=== PATIENT | female | born 1985 | race Two or more races ===

== ENCOUNTER 2019-11-08 23:25 | Emergency (ER) | payer SELFPAY ==
[2019-11-08] MEDS ORDERED: Naproxen 500 MG Tab PO ONE (23:52)
--- NOTE | 2019-11-09 00:05 | EDM.PDOC ---
ED HPI GENERAL MEDICAL PROBLEM - General Chief Complaint: Upper Extremity Injury/Pain Stated Complaint: RIGHT ELBOW INJURY Time Seen by Provider: 11/08/19 23:35 - History of Present Illness INITIAL COMMENTS - FREE TEXT/NARRATIVE: 34-year-old female presents complaining of a stumbling fall onto her right side landing squarely on her right elbow. The patient denies any significant head trauma. No loss of consciousness. The patient is not on blood thinners. Patient denies any neck or back pain. No leg pain. She does endorse 3-6/10 right elbow pain (worse with movement) and which is worse in the lateral and posterior components. She denies any liz weakness or numbness. She took no special medications for the illness before arrival. Patient denies any chest pain, shortness of breath, confusion, headache, vision changes. 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: Musculoskeletal History: Reports: None Neurological History: Reports: None Psychiatric History: Reports: None Endocrine/Metabolic History: Reports: None Insulin Pump Model and Construction Code Administrator: None Hematologic History: Reports: None Immunologic History: Reports: None Oncologic (Cancer) History: Reports: None Dermatologic History: Reports: None - Infectious Disease History Infectious Disease History: Reports: None - Past Surgical History Head Surgeries/Procedures: Reports: None Social & Family History - Family History Family Medical History: Noncontributory - Tobacco Use Smoking Status *Q: Never Smoker - Caffeine Use Caffeine Use: Reports: None - Recreational Drug Use Recreational Drug Use: No Review of Systems - Review of Systems Review Of Systems: Comprehensive ROS is negative, except as noted in HPI. ED EXAM, GENERAL - Physical Exam Exam: See Below Free Text/Narrative:: General: No acute distress. Comfortable. Heent: Examination revealed no pallor, no icterus, no lymphadenopathy. The patient has normal posterior pharynx, moist mucous membranes. Neck: Supple. No JVD. No rigidity. Heart: Reg rhythm. Lungs: Metric movement. Not tachypneic.. Abdomen: Nontender, non-distended, soft, no CVA tenderness. Neuro: Pt is moving all four extremities. EOMI. PERRL. Normal speech. Skin: Exposed areas appeared normally perfused, warm, normal color with no meaningful rashes or lesions. Extremities: Trace abrasion to right olecranon with some moderate associated TTP here. Mild tenderness to the medial epicondyle of the right elbow. Normal power of extension and flexion of the wrist. Normal power at the fingers in extension and flexion. Excellent radial and ulnar pulses distally. No gross deformity. No tenderness of the distal humerus. Peripheral examination revealed no pedal edema. Peripheral pulses were 2+. Course - Vital Signs Text/Narrative:: Isolated trauma to right elbow. Negative imaging. Patient can range her elbow quite well. She is tender over the elbow proper and the medial condyle. However she is neurovascular intact otherwise. Anti-inflammatories for pain control. Maintain range of motion. Follow-up 7 to 10 days with orthopedics if not improved. Last Recorded V/S: Last Vital Signs Temp 97 F 11/08/19 23:35 Pulse 69 11/08/19 23:35 Resp 18 11/08/19 23:35 BP 112/67 11/08/19 23:35 Pulse Ox 98 11/08/19 23:35 - Orders/Labs/Meds Meds: Medications Discontinued Medications Generic Name Dose Route Start Last Admin Trade Name Freq PRN Reason Stop Dose Admin Naproxen 500 mg 11/08/19 23:52 11/09/19 00:01 Naprosyn PO 11/08/19 23:53 500 mg ONETIME ONE Administration Departure - Departure Time of Disposition: 00:45 Disposition: DC/Tfer to [facility] Condition: Good Clinical Impression: Elbow contusion - Discharge Information Referrals: PCP,None [Primary Care Provider] - Forms: ED Department Discharge Additional Instructions: Take anti-inflammatory medication of your choice regularly for best results to help control pain. This would include something like ibuprofen which is the same thing as Advil, 2 tablets or 400 mg every 6-8 hours. Or, you could use naproxen sodium which is the same thing as Aleve every 12 hours as directed for pain. Follow-up 7 to 10 days with orthopedics if you are not much improved. [facility] [address], [address] [place] [address] The following information is given to patients seen in the emergency department who are being discharged to home. This information is to outline your options for follow-up care. We provide all patients seen in our emergency department with a follow-up referral. The need for follow-up, as well as the timing and circumstances, are variable depending upon the specifics of your emergency department visit. If you don't have a primary care physician on staff, we will provide you with a referral. We always advise you to contact your personal physician following an emergency department visit to inform them of the circumstance of the visit and for follow-up with them and/or the need for any referrals to a consulting specialist. The emergency department will also refer you to a specialist when appropriate. This referral assures that you have the opportunity for follow-up care with a specialist. All of these measure are taken in an effort to provide you with optimal care, which includes your follow-up. Under all circumstances we always encourage you to contact your private physician who remains a resource for coordinating your care. When calling for follow-up care, please make the office aware that this follow-up is from your recent emergency room visit. If for any reason you are refused follow-up, please contact the [facility] Emergency Department at and asked to speak to the emergency department charge nurse. Sepsis Event Note - Evaluation Sepsis Screening Result: No Definite Risk - Focused Exam Vital Signs: Vital Signs Temp Pulse Resp BP Pulse Ox 11/08/19 23:35 97 F 69 18 112/67 98 Date Exam was Performed: 11/09/19 Time Exam was Performed: 00:48
--- NOTE | 2019-11-09 00:46 | CR ---
INDICATION: S/P fall. Rt elbow pain. RIGHT ELBOW No fracture, dislocation, or destructive lesion of bone is seen. No arthritic changes or soft tissue abnormalities are identified. IMPRESSION: Negative right elbow radiographs. ROBERTO CARLOS BAGLEY MD [facility] Dictated by: Ronak Bagley MD @ 11/09/2019 00:45:06 (Electronically Signed)
== END 2019-11-09 01:00 | disposition home or self-care (01) ==
LOC: MW.ED 23:25
DX: S50.01XA Contusion of right elbow, initial encounter (principal); W01.0XXA Fall on same level from slipping, tripping and stumbling without subsequent striking against object, initial encounter
CPT/HCPCS: 73080; 99283; A9270

== ENCOUNTER 2020-10-30 15:34 | Emergency (ER) | payer SELFPAY ==
[2020-10-30] MEDS ORDERED: Ketorolac 15 MG/ML SDV IM ONE (17:39)
[2020-10-30] MEDS ORDERED: Ketorolac 15 MG/ML SDV IVPUSH STA (17:40)
[2020-10-30] MEDS ORDERED: Dextrose 5%-Lactated Ringers 1,000 ML IV SCH (17:45)
[2020-10-30 18:42] LABS: BLOOD UREA NITROGEN,BUN 12 mg/dL (7.0-18.0); CARBON DIOXIDE,CO2 25.1 mmol/L (21.0-32.0); CHLORIDE,CL 106 mmol/L (98-107); GLUCOSE RANDOM 107 mg/dL (74-106); POTASSIUM,K 3.9 mmol/L (3.5-5.1); SODIUM,NA 141 mmol/L (136-145)
[2020-10-30] MEDS ORDERED: Sulfamethoxazole/Trimethoprim 800-160 MG Tab PO ONE (19:11)
[2020-10-30] MEDS ORDERED: Lactated Ringers 1,000 ML IV SCH (19:15)
--- NOTE | 2020-10-30 19:23 | EDM.PDOC ---
<Vladislav Baum - Last Filed: 10/30/20 19:22> ED HPI GENERAL MEDICAL PROBLEM - General Chief Complaint: General Stated Complaint: NAUSEA,BODY ACHES,FREQ COUGH Time Seen by Provider: 10/30/20 15:38 - History of Present Illness INITIAL COMMENTS - FREE TEXT/NARRATIVE: CHIEF COMPLAINT(S): Abdominal pain HISTORY OF PRESENT ILLNESS: This is a 35-year-old woman without any significant past medical history who comes to the emergency department with a chief complaint of abdominal pain. The patient states that for approximately 4 days now she has been experiencing chills and body aches. She states that over the weekend she started to experiencing a nonproductive cough, sneezing, and runny nose. She states that she feels cold all the time. She states that she then developed upper abdominal pain which moved to the lower abdominal pain associated with bilateral back pain. She states that she did have vomiting this morning but denies any diarrhea. She denies any hematemesis, bilious emesis. S he denies any dysuria or hematuria but states that there is some foul-smelling urine. She denies any Covid exposures and has not yet received a Covid vaccine. She describes as her abdominal pain as sharp and achy rated 5 out of 10. She denies any aggravating or relieving factors. REVIEW OF SYSTEMS: Constitutional: Positive for chills and body ache Eyes: Denies eye pain Ears, Nose, Mouth, & Throat: Positive for runny nose and congestion Cardiovascular: Denies chest pain Respiratory: Positive for nonproductive cough denies shortness of breath Gastrointestinal: Positive for abdominal pain, nausea, vomiting. Denies diarrhea, medic easier, hematemesis, bilious emesis Genitourinary: Positive for foul-smelling urine denies hematuria, dysuria, hematuria Skin:Denies a rash MSK: Denies joint pain Neurological: Denies blurred vision Psychiatric: Denies depression PAST MEDICAL HISTORY: As per history of present illness and as reviewed below otherwise noncontributory. SURGICAL HISTORY: As per history of present illness and as reviewed below otherwise noncontributory. SOCIAL HISTORY: As per history of present illness and as reviewed below otherwise noncontributory. FAMILY HISTORY: As per history of present illness and as reviewed below otherwise noncontributory. EXAMINATION OF ORGAN SYSTEMS/BODY AREAS: Constitutional: Blood pressure was 160/70, heart rate was 80, respiratory rate 18 with an oxygen saturation of 100% on room air. Temperature 35.0 temporally General: Young woman who does not appear to be in acute distress Psychiatric: Appropriate mood and affect. Eyes: No scleral icterus or conjunctival erythema ENMT: Dry mucous membranes. No pharyngeal erythema Cardiovascular: Regular, rate, and rhythm. No gallops, murmurs, or rubs. Bilateral upper extremity pulses symmetric and intact. No peripheral edema. No JVD. Respiratory: Lungs clear to auscultation bilaterally. No wheezes, rales, or rhonchi. Gastrointestinal: Soft, non-tender, non-distended. Normoactive bowel sounds Genitourinary: No suprapubic tenderness mild bilateral CVA tenderness. Musculoskeletal: Normal range of motion. Skin: No lesions or abrasions. Neurological: Alert, GCS 15 MEDICAL DECISION MAKING AND COURSE IN THE ED WITH INTERPRETATION/REVIEW OF DIAGNOSTIC STUDIES: This is a 35-year-old man without any significant past medical history who comes to the emergency department with abdominal pain and viral-like symptoms who has normal vitals. At this time differential includes cystitis, pyelonephritis, Covid, influenza. Will obtain CBC, CMP, and urinalysis. Will obtain a Covid swab. We will provide the patient with 1 L of lactated Ringer's bolus, Toradol IV. We will reevaluate. Laboratory: CBC is unremarkable. CMP reveals hyperglycemia at 107, hypocalcemia at 7.8 otherwise unremarkable. Urinalysis was a clean catch and was negative for leukocyte esterase, positive for nitrites, and negative for blood. Interpretation: Positive After labs I did reevaluate the patient. The patient stated that she still felt dehydrated. I did send a urine culture at this time I discussed with her that we would be treating her for pyelonephritis. Covid and influenza was pending at this time. We will provide the patient with additional LR bolus and and wait for Covid results. Patient was signed out to oncoming night team physician pending Covid results. The patient can be discharged home with strict return precautions DISPOSITION: Patient was signed out to oncoming night team physician pending Covid swab and finish of second fluid bolus CONDITION: Fair PROCEDURES: None FINAL IMPRESSION(S)/DIAGNOSES: 1. Acute pyelonephritis 2. Acute viral syndrome Vladislav Baum M.D. 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: Musculoskeletal History: Reports: None Neurological History: Reports: None Psychiatric History: Reports: None Endocrine/Metabolic History: Reports: None Insulin Pump Model and [employer] Functional Analyst: None Hematologic History: Reports: None Immunologic History: Reports: None Oncologic (Cancer) History: Reports: None Dermatologic History: Reports: None - Infectious Disease History Infectious Disease History: Reports: Chicken Pox - Past Surgical History Head Surgeries/Procedures: Reports: None HEENT Surgical History: Reports: None Cardiovascular Surgical History: Reports: None Respiratory Surgical History: Reports: None GI Surgical History: Reports: None Female Surgical History: Reports: None Endocrine Surgical History: Reports: None Neurological Surgical History: Reports: None Musculoskeletal Surgical History: Reports: None Oncologic Surgical History: Reports: None Dermatological Surgical History: Reports: None Social & Family History - Family History Family Medical History: No Pertinent Family History - Tobacco Use Tobacco Use Status *Q: Never Tobacco User Second Hand Smoke Exposure: No - Caffeine Use Caffeine Use: Reports: None - Recreational Drug Use Recreational Drug Use: No ED ROS GENERAL - Review of Systems Review Of Systems: See Below ED EXAM, GENERAL - Physical Exam Exam: See Below Departure - Departure Disposition: Home, Self-Care 01 Condition: Fair Clinical Impression: COVID-19, Pyelonephritis - Discharge Information Prescriptions: Sulfamethoxazole/Trimethoprim [Bactrim Ds Tablet] 1 each PO BID #28 tablet Instructions: Pyelonephritis, Adult, [id number], 10 Things You Can Do to Manage Your COVID-19 Symptoms at Home - CDC, Prevent the Spread of COVID-19 if You Are Sick - [facility] Referrals: PCP,None [Primary Care Provider] - Forms: ED Department Discharge Additional Instructions: You evaluate today on an emergent basis. At this time there was evidence of infection in your urine and given the back pain we are going to treat for a kidney infection. We did send a urine culture and prescribed you with antibiotics. Please complete the full course of antibiotics. The antibiotics were sent to your pharmacy. Your COVID-19 test was also positive. This likely explains your diffuse body aches and other symptoms. If you have worsening shortness of breath or severe vomiting and not unable to keep food down please return to the ER. Otherwise please follow-up with one of the primary care clinics listed below. If you have any worsening of your symptoms such as fever, inability to eat or drink or worsening pain I would like you to return to the emergency department. Otherwise please follow-up with your primary care physician. [facility] - [facility] [address] [place], [place] [id number] [facility] [address] [place] [id number] The patient is informed of any results of their evaluation and diagnostic workup and all questions are answered. They are given discharge instructions and return precautions. The patient is stable for discharge. The patient states they understand and agree with the plan and that they will return if their symptoms get worse or if they have any new concerns. The following information is given to patients seen in the emergency department who are being discharged to home. This information is to outline your options for follow-up care. We provide all patients seen in our emergency department with a follow-up referral. The need for follow-up, as well as the timing and circumstances, are variable depending upon the specifics of your emergency department visit. If you don't have a primary care physician on staff, we will provide you with a referral. We always advise you to contact your personal physician following an emergency department visit to inform them of the circumstance of the visit and for follow-up with them and/or the need for any referrals to a consulting specialist. The emergency department will also refer you to a specialist when appropriate. This referral assures that you have the opportunity for follow-up care with a specialist. All of these measure are taken in an effort to provide you with optimal care, which includes your follow-up. Under all circumstances we always encourage you to contact your private physician who remains a resource for coordinating your care. When calling for follow-up care, please make the office aware that this follow-up is from your recent emergency room visit. If for any reason you are refused follow-up, please contact the [facility] Emergency Department at and asked to speak to the emergency department charge nurse. Sepsis Event Note (ED) - Evaluation Sepsis Screening Result: No Definite Risk <Eugenio Espino - Last Filed: 10/30/20 20:35> Course - Vital Signs Last Recorded V/S: Last Vital Signs Temp 95.0 F L 10/30/20 15:47 Pulse 67 10/30/20 20:20 Resp 16 10/30/20 20:20 BP 112/68 10/30/20 20:20 Pulse Ox 98 10/30/20 20:20 - Orders/Labs/Meds Orders: Active Orders 24 hr Category Date Time Status CULTURE URINE [RM] Stat Lab 10/30/20 18:45 Received Dextrose 5%-Lactated Ringers 1,000 ml Med 10/30/20 17:45 Active IV ASDIRECTED Lactated Ringers [Ringers, Lactated] 1,000 ml Med 10/30/20 19:15 Active IV ASDIRECTED Medication Orders Dextrose/Lactated Ringer's (Dextrose 5%-Lactated Ringers) 1,000 mls @ 999 mls/hr IV ASDIRECTED [facility] Last Admin: 10/30/20 18:03 Dose: 999 mls/hr Documented by: [id number] Lactated Ringer's (Ringers, Lactated) 1,000 mls @ 999 mls/hr IV ASDIRECTED [facility] Last Admin: 10/30/20 19:19 Dose: 999 mls/hr Documented by: ALAN Labs: Laboratory Tests 10/30/20 10/30/20 10/30/20 Range/Units 18:05 18:05 18:45 WBC 6.79 (4.0-11.0) K/uL RBC 4.60 (4.30-5.90) M/uL Hgb 13.1 (12.0-16.0) g/dL Hct 41.1 (36.0-46.0) % MCV 89.3 (80.0-98.0) fL MCH 28.5 (27.0-32.0) pg MCHC 31.9 (31.0-37.0) g/dL RDW Std Deviation 44.0 (28.0-62.0) fl RDW Coeff of Jonathan 13 (11.0-15.0) % Plt Count 220 (150-400) K/uL MPV 11.30 (7.40-12.00) fL Neut % (Auto) 83.4 H (48.0-80.0) % Lymph % (Auto) 9.7 L (16.0-40.0) % Bonner % (Auto) 5.6 (0.0-15.0) % Eos % (Auto) 1.2 (0.0-7.0) % Baso % (Auto) 0.1 (0.0-1.5) % Neut # (Auto) 5.7 (1.4-5.7) K/uL Lymph # (Auto) 0.7 (0.6-2.4) K/uL Bonner # (Auto) 0.4 (0.0-0.8) K/uL Eos # (Auto) 0.1 (0.0-0.7) K/uL Baso # (Auto) 0.0 (0.0-0.1) K/uL Nucleated RBC % 0.0 /100WBC Nucleated RBCs # 0 K/uL Sodium 141 (136-145) mmol/L Potassium 3.9 (3.5-5.1) mmol/L Chloride 106 (98-107) mmol/L Carbon Dioxide 25.1 (21.0-32.0) mmol/L BUN 12 (7.0-18.0) mg/dL Creatinine 1.0 (0.6-1.0) mg/dL Est Cr Clr Drug Dosing 63.29 mL/min Estimated GFR (MDRD) > 60.0 ml/min Glucose 107 H (74-106) mg/dL Calcium 7.8 L (8.5-10.1) mg/dL Total Bilirubin 0.1 L (0.2-1.0) mg/dL AST 16 (15-37) IU/L ALT 19 (14-63) IU/L Alkaline Phosphatase 76 (46-116) U/L Total Protein 7.3 (6.4-8.2) g/dL Albumin 3.6 (3.4-5.0) g/dL Globulin 3.7 (2.6-4.0) g/dL Albumin/Globulin Ratio 1.0 (0.9-1.6) Urine Color YELLOW Urine Appearance CLEAR Urine pH 7.0 (5.0-8.0) Ur Specific Lavina 1.020 (1.001-1.035) Urine Protein NEGATIVE (NEGATIVE) mg/dL Urine Glucose (UA) 500 H (NEGATIVE) mg/dL Urine Ketones NEGATIVE (NEGATIVE) mg/dL Urine Occult Blood TRACE-INTACT H (NEGATIVE) Urine Nitrite POSITIVE H (NEGATIVE) Urine Bilirubin NEGATIVE (NEGATIVE) Urine Urobilinogen 0.2 (<2.0) EU/dL Ur Leukocyte Esterase NEGATIVE (NEGATIVE) Urine RBC 0-3 (0-2/HPF) Urine WBC 0-1 (0-5/HPF) Ur Epithelial Cells RARE (NONE-FEW) Urine Bacteria 1+ H (NEGATIVE) SARS-CoV-2 RNA (MARCO ANTONIO) (NEGATIVE) 10/30/20 Range/Units 19:08 WBC (4.0-11.0) K/uL RBC (4.30-5.90) M/uL Hgb (12.0-16.0) g/dL Hct (36.0-46.0) % MCV (80.0-98.0) fL MCH (27.0-32.0) pg MCHC (31.0-37.0) g/dL RDW Std Deviation (28.0-62.0) fl RDW Coeff of Jonathan (11.0-15.0) % Plt Count (150-400) K/uL MPV (7.40-12.00) fL Neut % (Auto) (48.0-80.0) % Lymph % (Auto) (16.0-40.0) % Bonner % (Auto) (0.0-15.0) % Eos % (Auto) (0.0-7.0) % Baso % (Auto) (0.0-1.5) % Neut # (Auto) (1.4-5.7) K/uL Lymph # (Auto) (0.6-2.4) K/uL Bonner # (Auto) (0.0-0.8) K/uL Eos # (Auto) (0.0-0.7) K/uL Baso # (Auto) (0.0-0.1) K/uL Nucleated RBC % /100WBC Nucleated RBCs # K/uL Sodium (136-145) mmol/L Potassium (3.5-5.1) mmol/L Chloride (98-107) mmol/L Carbon Dioxide (21.0-32.0) mmol/L BUN (7.0-18.0) mg/dL Creatinine (0.6-1.0) mg/dL Est Cr Clr Drug Dosing mL/min Estimated GFR (MDRD) ml/min Glucose (74-106) mg/dL Calcium (8.5-10.1) mg/dL Total Bilirubin (0.2-1.0) mg/dL AST (15-37) IU/L ALT (14-63) IU/L Alkaline Phosphatase (46-116) U/L Total Protein (6.4-8.2) g/dL Albumin (3.4-5.0) g/dL Globulin (2.6-4.0) g/dL Albumin/Globulin Ratio (0.9-1.6) Urine Color Urine Appearance Urine pH (5.0-8.0) Ur Specific Lavina (1.001-1.035) Urine Protein (NEGATIVE) mg/dL Urine Glucose (UA) (NEGATIVE) mg/dL Urine Ketones (NEGATIVE) mg/dL Urine Occult Blood (NEGATIVE) Urine Nitrite (NEGATIVE) Urine Bilirubin (NEGATIVE) Urine Urobilinogen (<2.0) EU/dL Ur Leukocyte Esterase (NEGATIVE) Urine RBC (0-2/HPF) Urine WBC (0-5/HPF) Ur Epithelial Cells (NONE-FEW) Urine Bacteria (NEGATIVE) SARS-CoV-2 RNA (MARCO ANTONIO) POSITIVE H (NEGATIVE) Meds: Medications Generic Name Dose Route Start Last Admin Trade Name Freq PRN Reason Stop Dose Admin Dextrose/Lactated Ringer's 1,000 mls @ 999 mls/hr 10/30/20 17:45 10/30/20 18:03 Dextrose 5%-Lactated Ringers IV 999 mls/hr ASDIRECTED SHRADDHA Administration Lactated Ringer's 1,000 mls @ 999 mls/hr 10/30/20 19:15 10/30/20 19:19 Ringers, Lactated IV 999 mls/hr ASDIRECTED SHRADDHA Administration Discontinued Medications Generic Name Dose Route Start Last Admin Trade Name Kia PRN Reason Stop Dose Admin Ketorolac Tromethamine 15 mg 10/30/20 17:40 10/30/20 18:03 Ketorolac 15 Mg/Ml Sdv IVPUSH 10/30/20 17:41 15 mg STAT STA Administration Trimethoprim/Sulfamethoxazole 1 tab 10/30/20 19:11 10/30/20 19:20 Sulfamethoxazole/Trimethoprim 800-160 Mg Tab PO 10/30/20 19:12 1 tab ONETIME ONE Administration Departure - Departure Time of Disposition: 20:33 Condition: Good - Discharge Information *PRESCRIPTION DRUG MONITORING PROGRAM REVIEWED*: Not Applicable *COPY OF PRESCRIPTION DRUG MONITORING REPORT IN PATIENT CLAUDIA: Not Applicable Sepsis Event Note (ED) - Focused Exam Vital Signs: Vital Signs Temp Pulse Resp BP Pulse Ox 10/30/20 20:20 67 16 112/68 98 10/30/20 15:47 95.0 F L 80 18 160/70 H 100 - Assessment/Plan Assessment:: Patient received in signout from Dr. Baum at 7 PM. Patient's Covid test is indeed positive. I believe this is the cause of her presentation. Her work of breathing is normal her vital signs are good. Patient is young and otherwise well she does not qualify for any directed Covid treatment steroids admission etc. Return precautions discussed and understood patient discharged with instructions to follow-up with her primary care clinic.
== END 2020-10-30 20:55 | disposition home or self-care (01) ==
LOC: MW.ED 15:34
DX: U07.1 COVID-19 (principal); N10 Acute pyelonephritis
CPT/HCPCS: 36415; 80053; 81001; 85025; 87086; 87088; 87186; 87635; 96374; 99284; A9270; J1885; J7120; J7121; 99283; U0002

== ENCOUNTER 2020-11-08 11:04 | Emergency (ER) | payer MEDICAID ==
[2020-11-08] MEDS ORDERED: Sodium Chloride 0.9% 10 ML Syringe FLUSH PRN (11:30)
[2020-11-08] MEDS ORDERED: Sodium Chloride 0.9% 1,000 ML IV ONE (11:30)
[2020-11-08] MEDS ORDERED: Sodium Chloride 0.9% 2.5 ML Syringe FLUSH PRN (11:30)
[2020-11-08] MEDS ORDERED: Dexamethasone 10 MG/ML SDV IVPUSH ONE (11:31)
--- NOTE | 2020-11-08 11:46 | PCM.EKG ---
#1 Interpretation EKG Date: 11/08/20 Time: 11:38 Rhythm: NSR Rate (Beats/Min): 81 [place]: Normal P-Wave: Present QRS: RBBB ST-T: Normal QT: Normal Comparison: NA - No Prior EKG EKG Interpretation Comments: SinuS Rhythm
[2020-11-08 12:30] LABS: BLOOD UREA NITROGEN,BUN 5 mg/dL (7.0-18.0); CARBON DIOXIDE,CO2 22.9 mmol/L (21.0-32.0); CHLORIDE,CL 106 mmol/L (98-107); GLUCOSE RANDOM 99 mg/dL (74-106); POTASSIUM,K 4.2 mmol/L (3.5-5.1); SODIUM,NA 142 mmol/L (136-145)
--- NOTE | 2020-11-08 12:49 | CT ---
INDICATION: COVID, PE, pneumonia. COMPARISON: None. TECHNIQUE: CT of the chest with 100 cc of Isovue 370 IV contrast. Coronal and sagittal reconstructions. 3D post processing was performed. FINDINGS: Normal heart size. Normal caliber thoracic aorta and central pulmonary arteries. Negative for acute pulmonary embolism. No pericardial effusion. Mildly prominent subcarinal and bilateral hilar lymph nodes are likely reactive. There are fairly extensive patchy ground-glass opacities throughout the lungs bilaterally which have a basilar and peripheral predominance. These are likely infectious or inflammatory. No pleural effusion or pneumothorax. No central endobronchial lesion. The thyroid gland is normal in appearance. The visualized upper abdomen is unremarkable. The bones are unremarkable. IMPRESSION: 1. Negative for acute pulmonary embolism. 2. Fairly extensive patchy ground-glass opacities throughout the lungs bilaterally which are likely infectious or inflammatory. Findings could be seen in the setting of COVID pneumonia. Please note that all CT scans at this facility use dose modulation, iterative reconstruction, and/or weight-based dosing when appropriate to reduce radiation dose to as low as reasonably achievable. Dictated by Fallon Veloz MD @ 11/08/2020 12:49:[address] Fallon Veloz @ Nov 08 2020 12:49PM
[2020-11-08] MEDS ORDERED: Calcium Carbonate 500 MG Tab.Chew PO ONE (13:02)
--- NOTE | 2020-11-08 13:23 | EDM.PDOC ---
ED HPI GENERAL MEDICAL PROBLEM - General Chief Complaint: Respiratory Problem Stated Complaint: PNEUMONIA Time Seen by Provider: 11/08/20 11:05 Source of Information: Reports: Patient History Limitations: Reports: No Limitations - History of Present Illness INITIAL COMMENTS - FREE TEXT/NARRATIVE: HISTORY AND PHYSICAL: History of present illness: Patient is a 35-year-old female who resents emergency room today with concern of worsening shortness of breath with known COVID-19 diagnosis. Patient was seen in the ED on 10/30 and at that time was diagnosed with COVID-19. Patient states that since then, she thought that she was improving but now over the past 2 to 3 days, she has had worsening shortness of breath. Patient states that she saw her primary care provider in the clinic and was given amoxicillin and an inhaler and was told that she had a urinary tract infection and "pneumonia ". Patient states that she had a chest x-ray yesterday and lab work done yesterday in the clinic and received a call today and was told that she had pneumonia and a urinary tract infection. Patient states she took 1 dose of antibiotics this morning. Patient states that when the clinic called her this morning, she told him that she was feeling short of breath so they instructed her to come to the emergency room. Patient denies any associated chest pain. Patient states that she continues to have intermittent fevers with the Covid diagnosis and body aches and chills. Patient states that she has also still been coughing and sneezing since she was diagnosed with Covid. Patient denies fever, chills, chest pain, or cough. Denies headache, neck stiff ness, change in vision, syncope, or near syncope. Denies nausea, vomiting, abdominal pain, diarrhea, constipation, or dysuria. Has not noted any blood in urine or stool. Patient has been eating and drinking appropriately. Review of systems: As per history of present illness and below otherwise all systems reviewed and negative. Past medical history: As per history of present illness and as reviewed below otherwise noncontributory. Surgical history: As per history of present illness and as reviewed below otherwise n oncontributory. Social history: See social history for further information Family history: As per history of present illness and as reviewed below otherwise noncontributory. Physical exam: General: Patient is alert, oriented, and in no acute distress. Patient sitting comfortably on exam table. Vitals stable and reviewed by me. HEENT: Atraumatic, normocephalic, pupils equal and reactive bilaterally, negative for conjunctival pallor or scleral icterus, mucous membranes moist, TMs normal bilaterally, throat clear, neck supple, nontender, trachea midline. No drooling or trismus noted. No meningeal signs. No hot potato voice noted. Lungs: Patient speaking clearly without breathlessness, no wheezing or stridor, no accessory muscle use or respiratory distress. Auscultation deferred due to current COV-ID 19 outbreak. Heart: Auscultation deferred due to current COV-ID 19 outbreak. Abdomen: Soft, nondistended, nontender. Negative for masses or hepatosplenomegaly. Negative for costovertebral tenderness. Pelvis: Stable nontender. Genitourinary: Deferred. Rectal: Deferred. Skin: Intact, warm, dry. No lesions or rashes noted. Extremities: Atraumatic, negative for cords or calf pain. Neurovascular unremarkable. Neuro: Awake, alert, oriented. Cranial nerves II through XII unremarkable. Cerebellum unremarkable. Motor and sensory unremarkable throughout. Exam nonfocal. Notes: Patient is a 35-year-old female who presents emergency room today secondary to worsening shortness of breath with known COVID-19 infection that was diagnosed 10 days ago. Upon arrival to the ED, patient is well-appearing on exam and vitally stable. She is speaking clearly without breathlessness, no accessory muscle use or respiratory distress without wheezing or stridor and oxygen on room air is 98%. Patient does express that she thought she was improving, however now her shortness of breath over the past several days is worsening and was started on antibiotics by her primary care provider for concern of a bacterial pneumonia and urinary tract infection. Will perform cardiac evaluation due to worsening dyspnea as well as performing and CT scan with concern of possible pulmonary embolism. Patient recent hcg was negative. See Dr. Baum's dictation for specific EKG interpretation. Otherwise, normal sinus rhythm without STEMI or ischemia. CBC mild derangements are unremarkable. CMP shows a corrected calcium of 8.3 which is mildly low, and elevation of AST at 243, elevated ALT at 311, elevated alk phos at 188 which is new from prior and likely related to COVID-19 infection. Albumin at 2.9 is slightly low. Troponin is negative. And CT is negative for acute pulmonary embolism. Fairly extensive patchy groundglass opacities throughout the lungs bilaterally which are likely inf ectious or inflammatory which is seen in the setting of COVID-19 pneumonia Upon reevaluation of patient, she remains vitally stable and comfortable throughout stay in ED. Patient's oxygen on room air remains consistently above 96% and ambulatory saturation of 97% on my exam. Strict return precautions were thoroughly discussed with patient. Signs and symptoms that were prompt return to the ED thoroughly discussed with patient. Discussed importance for follow-up with a primary care provider and for repeat lab work for her elevated liver functions today. Voices understanding and is agreeable to plan of care. Denies any further questions or concerns at this time. Diagnostics: EKG, CBC, CMP, Ang CT, Trop Therapeutics: NS, Decadron Prescription: None Impression: COVID-19 infection Transaminitis Plan: 1. Your vital signs and oxygen saturation are well enough that you were able to monitor your symptoms at home. Continue to monitor for trouble breathing, new confusion or inability to arouse, bluish lips or face or any of the other symptoms we discussed -if this occurs please return to the emergency room.Continue to monitor your health at home for worsening symptoms so that you can be taken care of and treated quickly if needed. You can purchase a pulse oximiter and monitor your oxygen at home. If your oxygen is consistently <90%, return to the ED as discussed. 2. Please self quarantine until you are fever free (<100.4 degrees fahrenheit) for 24 hours without the use of fever-reducing medications AND symptoms are improving. You should restrict activities outside of your home, except for getting medical care. Do not go to work, school, or public areas. Avoid using public transportation, ride-sharing, or taxis. . 3. You may alternate Tylenol and ibuprofen as needed for pain and fever management. 4.The [place] COVID 19 Hotline phone number , They are open Thursday - Thursday 7am - 7pm. Follow up with your primary care provider for re-evaluation and re-testing after quarantine and discuss when you should be seen and for repeat labwork / follow up of your liver function as discussed.. 5. For more specific guidelines regarding isolation/quarantine please visit this website. https://www.health.[place].gov/sites/www/files/documents/Files/DANIEL/coronavirus/Factsh eet_for_People_With_COVID-19.pdf Definitive disposition and diagnosis as appropriate pending reevaluation and review of above. 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: Musculoskeletal History: Reports: None Neurological History: Reports: None Psychiatric History: Reports: None Endocrine/Metabolic History: Reports: None Insulin Pump Model and Ophthalmic Surgical Assistant: None Hematologic History: Reports: None Immunologic History: Reports: None Oncologic (Cancer) History: Reports: None Dermatologic History: Reports: None - Infectious Disease History Infectious Disease History: Reports: Chicken Pox, Novel Coronavirus - Past Surgical History Head Surgeries/Procedures: Reports: None HEENT Surgical History: Reports: None Cardiovascular Surgical History: Reports: None Respiratory Surgical History: Reports: None GI Surgical History: Reports: None Female Surgical History: Reports: None Endocrine Surgical History: Reports: None Neurological Surgical History: Reports: None Musculoskeletal Surgical History: Reports: None Oncologic Surgical History: Reports: None Dermatological Surgical History: Reports: None Social & Family History - Family History Family Medical History: No Pertinent Family History - Tobacco Use Tobacco Use Status *Q: Never Tobacco User - Caffeine Use Caffeine Use: Reports: None - Recreational Drug Use Recreational Drug Use: No ED ROS GENERAL - Review of Systems Review Of Systems: Comprehensive ROS is negative, except as noted in HPI. ED EXAM, GENERAL - Physical Exam Exam: See Below (see dictation) Course - Vital Signs Last Recorded V/S: Last Vital Signs Temp 96.5 F L 11/08/20 11:10 Pulse 85 11/08/20 13:38 Resp 15 11/08/20 11:10 BP 107/72 11/08/20 13:38 Pulse Ox 96 11/08/20 13:38 - Orders/Labs/Meds Orders: Active Orders 24 hr Category Date Time Status Saline Lock Insert [OM.PC] Stat [facility] 11/08/20 11:30 Ordered Labs: Laboratory Tests 11/08/20 11/08/20 Range/Units 11:45 11:45 WBC 6.26 (4.0-11.0) K/uL RBC 4.23 L (4.30-5.90) M/uL Hgb 12.0 (12.0-16.0) g/dL Hct 37.3 (36.0-46.0) % MCV 88.2 (80.0-98.0) fL MCH 28.4 (27.0-32.0) pg MCHC 32.2 (31.0-37.0) g/dL RDW Std Deviation 44.2 (28.0-62.0) fl RDW Coeff of Jonathan 14 (11.0-15.0) % Plt Count 181 (150-400) K/uL MPV 10.90 (7.40-12.00) fL Neut % (Auto) 77.7 (48.0-80.0) % Lymph % (Auto) 15.2 L (16.0-40.0) % [place] % (Auto) 6.2 (0.0-15.0) % Eos % (Auto) 0.6 (0.0-7.0) % Baso % (Auto) 0.3 (0.0-1.5) % Neut # (Auto) 4.9 (1.4-5.7) K/uL Lymph # (Auto) 1.0 (0.6-2.4) K/uL [place] # (Auto) 0.4 (0.0-0.8) K/uL Eos # (Auto) 0.0 (0.0-0.7) K/uL Baso # (Auto) 0.0 (0.0-0.1) K/uL Nucleated RBC % 0.0 /100WBC Nucleated RBCs # 0 K/uL Sodium 142 (136-145) mmol/L Potassium 4.2 (3.5-5.1) mmol/L Chloride 106 (98-107) mmol/L Carbon Dioxide 22.9 (21.0-32.0) mmol/L BUN 5 L (7.0-18.0) mg/dL Creatinine 0.8 (0.6-1.0) mg/dL Est Cr Clr Drug Dosing 79.11 mL/min Estimated GFR (MDRD) > 60.0 ml/min Glucose 99 (74-106) mg/dL Calcium 7.9 L (8.5-10.1) mg/dL Total Bilirubin 0.4 (0.2-1.0) mg/dL AST 243 H (15-37) IU/L ALT 311 H (14-63) IU/L Alkaline Phosphatase 188 H (46-116) U/L Troponin I < 0.050 (0.000-0.056) ng/mL Total Protein 7.5 (6.4-8.2) g/dL Albumin 2.9 L (3.4-5.0) g/dL Globulin 4.6 H (2.6-4.0) g/dL Albumin/Globulin Ratio 0.6 L (0.9-1.6) Meds: Medications Discontinued Medications Generic Name Dose Route Start Last Admin Trade Name Freq PRN Reason Stop Dose Admin Calcium Carbonate/Glycine 1,000 mg 11/08/20 13:02 11/08/20 13:36 Calcium Carbonate 500 Mg Tab.Chew PO 11/08/20 13:03 1,000 mg ONETIME ONE Administration Dexamethasone 6 mg 11/08/20 11:31 11/08/20 11:39 Dexamethasone 10 Mg/Ml Sdv IVPUSH 11/08/20 11:32 6 mg ONETIME ONE Administration Sodium Chloride 1,000 mls @ 999 mls/hr 11/08/20 11:30 11/08/20 11:39 Normal Saline IV 11/08/20 12:30 999 mls/hr BOLUS ONE Administration Sodium Chloride 2.5 ml 11/08/20 11:30 11/08/20 11:39 Sodium Chloride 0.9% 2.5 Ml Syringe FLUSH 2.5 ml ASDIRECTED PRN Administration Keep Vein Open Sodium Chloride 10 ml 11/08/20 11:30 11/08/20 11:39 Sodium Chloride 0.9% 10 Ml Syringe FLUSH 10 ml ASDIRECTED PRN Administration Keep Vein Open Departure - Departure Time of Disposition: 13:19 Disposition: Home, Self-Care 01 Clinical Impression: COVID-19, Transaminitis - Discharge Information Instructions: COVID-19 Referrals: Saritha Fernando MD [Primary Care Provider] - Forms: ED Department Discharge Additional Instructions: The following information is given to patients seen in the emergency department who are being discharged to home. This information is to outline your options for follow-up care. We provide all patients seen in our emergency department with a follow-up referral. The need for follow-up, as well as the timing and circumstances, are variable depending upon the specifics of your emergency department visit. If you don't have a primary care physician on staff, we will provide you with a referral. We always advise you to contact your personal physician following an emergency department visit to inform them of the circumstance of the visit and for follow-up with them and/or the need for any referrals to a consulting specialist. The emergency department will also refer you to a specialist when appropriate. This referral assures that you have the opportunity for follow-up care with a specialist. All of these measure are taken in an effort to provide you with optimal care, which includes your follow-up. Under all circumstances we always encourage you to contact your private physician who remains a resource for coordinating your care. When calling for follow-up care, please make the office aware that this follow-up is from your recent emergency room visit. If for any reason you are refused follow-up, please contact the [facility] Emergency Department at and asked to speak to the emergency department charge nurse. [facility] [address] [place] [id number] [place] [address] 1. Your vital signs and oxygen saturation are well enough that you were able to monitor your symptoms at home. Continue to monitor for trouble breathing, new confusion or inability to arouse, bluish lips or face or any of the other symptoms we discussed -if this occurs please return to the emergency room.Continue to monitor your health at home for worsening symptoms so that you can be taken care of and treated quickly if needed. You can purchase a pulse oximiter and monitor your oxygen at home. If your oxygen is consistently <90%, return to the ED as discussed. 2. Please self quarantine until you are fever free (<100.4 degrees fahrenheit) for 24 hours without the use of fever-reducing medications AND symptoms are improving. You should restrict activities outside of your home, except for getting medical care. Do not go to work, school, or public areas. Avoid using public transportation, ride-sharing, or taxis. . 3. You may alternate Tylenol and ibuprofen as needed for pain and fever management. 4.The [place] COVID 19 Hotline phone number , They are open Thursday - Thursday 7am - 7pm. Follow up with your primary care provider for re-evaluation and re-testing after quarantine and discuss when you should be seen and for repeat labwork / follow up of your liver function as discussed.. 5. For more specific guidelines regarding isolation/quarantine please visit this website. https://www.health.vt.gov/sites/www/files/documents/Files/DANIEL/coronavirus/Factsh eet_for_People_With_COVID-19.pdf Sepsis Event Note (ED) - Evaluation Sepsis Screening Result: Possible Sepsis Risk - Focused Exam Vital Signs: Vital Signs Temp Pulse Resp BP Pulse Ox 11/08/20 13:38 85 107/72 96 11/08/20 11:10 96.5 F L 92 15 105/63 96 - My Orders Last 24 Hours: My Active Orders 11/08/20 11:30 Saline Lock Insert [OM.PC] Stat - Assessment/Plan Last 24 Hours: My Active Orders 11/08/20 11:30 Saline Lock Insert [OM.PC] Stat
== END 2020-11-08 13:40 | disposition home or self-care (01) ==
LOC: MW.ED 11:04
DX: U07.1 COVID-19 (principal); R74.01 Elevation of levels of liver transaminase levels
CPT/HCPCS: 36415; 71275; 80053; 84484; 85025; 93005; 96374; 99285; A9270; J1100; J7030; 99284

== ENCOUNTER 2022-12-17 16:04 | Emergency (ER) | payer MEDICAID ==
[2022-12-17] MEDS ORDERED: Bacitracin Oint 1 GM U/D Packet TOP ONE (16:47)
[2022-12-17] MEDS ORDERED: Diphtheria,Pertussis(Acell),Tetanus Vaccine 0.5 ML Syringe IM ONE (16:48)
[2022-12-17] MEDS ORDERED: Ketorolac 60 MG/2 ML SDV IM ONE (16:59)
== END 2022-12-17 19:30 | disposition home or self-care (01) ==
LOC: MW.ED 16:04
DX: S47.1XXA Crushing injury of right shoulder and upper arm, initial encounter (principal); S40.211A Abrasion of right shoulder, initial encounter; Z23 Encounter for immunization; Z86.16 Personal history of COVID-19; W10.9XXA Fall (on) (from) unspecified stairs and steps, initial encounter
CPT/HCPCS: 70450; 73030; 73110; 73130; 90715; J1885; 90471; 96372; 99283; 99284-25

== ENCOUNTER 2023-04-06 16:31 | Emergency (ER) | payer SELFPAY ==
[2023-04-06] MEDS ORDERED: Sodium Chloride 0.9% 2.5 ML Syringe FLUSH PRN (16:39)
[2023-04-06] MEDS ORDERED: Sodium Chloride 0.9% 10 ML Syringe FLUSH PRN (16:39)
[2023-04-06] MEDS ORDERED: Sodium Chloride 0.9% 1,000 ML IV STA (17:09)
[2023-04-06] MEDS ORDERED: Ketorolac 30 MG/ML SDV IVPUSH STA (17:09)
[2023-04-06 17:19] LABS: BASOPHILS ABSOLUTE AUTO 0.04 K/uL (0.00-0.20); BASOPHILS PERCENT AUTO 0.3 % (0.0-1.0); EOSINOPHILS ABSOLUTE AUTO 0.01 K/uL (0.00-0.45); EOSINOPHILS PERCENT AUTO 0.1 % (0.0-6.0); HEMATOCRIT 42.8 % (37.0-47.0); HEMOGLOBIN 14.3 g/dL (12.0-16.0); IMMATURE GRAN ABSOLUTE AUTO 0.05 K/uL (0.00-0.05); IMMATURE GRAN PERCENT AUTO 0.4 % (0.0-0.4); LYMPHOCYTES ABSOLUTE AUTO 1.16 K/uL (1.00-4.80); LYMPHOCYTES PERCENT AUTO 8.9 % (24.0-44.0); MEAN CORPUSCULAR HEMOGLOBIN 27.8 pg (28.0-32.0); MEAN CORPUSCULAR HGB CONC 33.4 g/dL (32.0-36.0); MEAN CORPUSCULAR VOLUME 83.1 fL (83.0-99.0); MEAN PLATELET VOLUME 9.9 fL (9.4-12.3); MONOCYTES ABSOLUTE AUTO 0.54 K/uL (0.00-0.80); MONOCYTES PERCENT AUTO 4.1 % (0.0-8.0); NEUTROPHILS ABSOLUTE AUTO 11.3 K/uL (1.8-7.7); NEUTROPHILS PERCENT AUTO 86.2 % (41.0-71.0); PLATELET COUNT,PLT 335 K/uL (150-400); RED BLOOD CELL COUNT 5.15 M/uL (4.10-5.30); WHITE BLOOD CELL COUNT,WBC 13.06 K/uL (3.9-11.3)
[2023-04-06] MEDS ORDERED: hydrOXYzine Pamoate 25 MG Cap PO STA (17:32)
[2023-04-06 17:43] LABS: ALBUMIN 4.2 g/dL (3.4-5.0); BILIRUBIN TOTAL 0.4 mg/dL (0.2-1.0); CALCIUM 9.3 mg/dL (8.5-10.1); CARBON DIOXIDE,CO2 22.9 mmol/L (21.0-32.0); CREATININE 0.9 mg/dL (0.6-1.0); POTASSIUM,K 3.5 mmol/L (3.5-5.1); PROTEIN TOTAL,TP 8.4 g/dL (6.4-8.2)
[2023-04-06 18:18] LABS: APPEARANCE,URINE CLEAR; BILIRUBIN,URINE NEGATIVE (NEGATIVE); COLOR,URINE YELLOW; GLUCOSE,URINE NEGATIVE (NEGATIVE); KETONES,URINE NEGATIVE (NEGATIVE); LEUKOCYTE ESTERASE,URINE NEGATIVE (NEGATIVE); NITRITE,URINE NEGATIVE (NEGATIVE); OCCULT BLOOD,URINE TRACE-INTACT (NEGATIVE); PROTEIN,URINE NEGATIVE (NEGATIVE); UROBILINOGEN,URINE 0.2 EU/dL (<2.0)
[2023-04-06] MEDS ORDERED: Iopamidol 755 MG/ML 500 ML Multipack Bottle IVPUSH STA (18:32)
[2023-04-06 18:37] LABS: BACTERIA,URINE NOT SEEN (NEGATIVE); EPITHELIAL CELLS,URINE NOT SEEN (NONE-FEW); RBC,URINE NONE SEEN (0-2/HPF); WBC,URINE NONE SEEN (0-5/HPF)
[2023-04-06] MEDS ORDERED: LORazepam 2 MG/ML SDV IVPUSH STA (19:13)
== END 2023-04-06 20:18 | disposition home or self-care (01) ==
LOC: MW.ED 16:31
DX: J06.9 Acute upper respiratory infection, unspecified (principal); F41.9 Anxiety disorder, unspecified
CPT/HCPCS: 36415; 71275; 80053; 81001; 83690; 83735; 84703; 85025; 86308; 93005; 96361; 96374; 96375; 99285; A9270; J1885; J2060; J3490; J7030; Q9967; 93010; 99284

== ENCOUNTER 2023-10-04 03:42 | Observation (INO) | payer SELFPAY ==
[2023-10-04 03:55] LABS: BASOPHILS ABSOLUTE AUTO 0.04 K/uL (0.00-0.20); BASOPHILS PERCENT AUTO 0.3 % (0.0-1.0); EOSINOPHILS PERCENT AUTO 1.3 % (0.0-6.0); HEMATOCRIT 35.8 % (37.0-47.0); HEMOGLOBIN 11.8 g/dL (12.0-16.0); IMMATURE GRAN ABSOLUTE AUTO 0.04 K/uL (0.00-0.05); IMMATURE GRAN PERCENT AUTO 0.3 % (0.0-0.4); LYMPHOCYTES ABSOLUTE AUTO 1.59 K/uL (1.00-4.80); LYMPHOCYTES PERCENT AUTO 10.4 % (24.0-44.0); MEAN CORPUSCULAR HEMOGLOBIN 29.1 pg (28.0-32.0); MEAN CORPUSCULAR VOLUME 88.4 fL (83.0-99.0); MEAN PLATELET VOLUME 10.3 fL (9.4-12.3); MONOCYTES ABSOLUTE AUTO 0.91 K/uL (0.00-0.80); MONOCYTES PERCENT AUTO 5.9 % (0.0-8.0); NEUTROPHILS ABSOLUTE AUTO 12.52 K/uL (1.80-7.70); NEUTROPHILS PERCENT AUTO 81.8 % (41.0-71.0); PLATELET COUNT,PLT 257 K/uL (150-400); RED BLOOD CELL COUNT 4.05 M/uL (4.10-5.30)
[2023-10-04] MEDS: Dexamethasone 10 MG/ML SDV IVPUSH ONE (03:56)
[2023-10-04] MEDS: Sodium Chloride 0.9% 1,000 ML IV ONE (03:56)
[2023-10-04] MEDS: Piperacillin/Tazobactam 4.5 GM in Sodium Chloride 0.9% 100 ML IV ONE (04:09)
[2023-10-04 04:16] LABS: A/G RATIO 0.7 (0.9-1.6); ALBUMIN 3.3 g/dL (3.4-5.0); BILIRUBIN TOTAL 0.5 mg/dL (0.2-1.0); CALCIUM 8.4 mg/dL (8.5-10.1); CARBON DIOXIDE,CO2 25.8 mmol/L (21.0-32.0); CREATININE 0.8 mg/dL (0.6-1.0); EST CRCL DRUG DOSING (CG) 76.89 mL/min; POTASSIUM,K 3.8 mmol/L (3.5-5.1); PROTEIN TOTAL,TP 7.8 g/dL (6.4-8.2)
[2023-10-04 04:31] LABS: CORONAVIRUS COVID-19 NAA NEGATIVE (NEGATIVE); INFLUENZA A NAA NEGATIVE (NEGATIVE); INFLUENZA B NAA NEGATIVE (NEGATIVE)
[2023-10-04] MEDS: Iopamidol 755 MG/ML 500 ML Multipack Bottle IVPUSH ONE (04:53)
[2023-10-04] MEDS ORDERED: Ondansetron 4 MG/2 ML SDV IVPUSH PRN (08:28)
[2023-10-04] MEDS: Pantoprazole 40 MG in Sodium Chloride 0.9% 10 ML IVPUSH ONE (09:15)
[2023-10-04] MEDS: Enoxaparin 40 MG/0.4 ML Syringe SUBCUT SCH (09:20)
[2023-10-04] MEDS: Morphine 2 MG/ML SYRINGE IVPUSH PRN (09:20)
[2023-10-04] MEDS: Ampicillin/Sulbactam Na 3 GM in Sodium Chloride 0.9% 100 ML IV SCH (12:41)
[2023-10-04] MEDS: Dexamethasone 4 MG/ML SDV IVPUSH SCH (15:11)
[2023-10-04] MEDS: Acetaminophen 325 MG Tab PO PRN (21:00)
[2023-10-05 05:46] LABS: BASOPHILS ABSOLUTE AUTO 0.02 K/uL (0.00-0.20); BASOPHILS PERCENT AUTO 0.1 % (0.0-1.0); HEMATOCRIT 32.7 % (37.0-47.0); HEMOGLOBIN 10.9 g/dL (12.0-16.0); IMMATURE GRAN ABSOLUTE AUTO 0.18 K/uL (0.00-0.05); IMMATURE GRAN PERCENT AUTO 0.9 % (0.0-0.4); LYMPHOCYTES ABSOLUTE AUTO 0.94 K/uL (1.00-4.80); LYMPHOCYTES PERCENT AUTO 4.7 % (24.0-44.0); MEAN CORPUSCULAR HEMOGLOBIN 29.5 pg (28.0-32.0); MEAN CORPUSCULAR HGB CONC 33.3 g/dL (32.0-36.0); MEAN CORPUSCULAR VOLUME 88.6 fL (83.0-99.0); MONOCYTES ABSOLUTE AUTO 0.55 K/uL (0.00-0.80); MONOCYTES PERCENT AUTO 2.8 % (0.0-8.0); NEUTROPHILS ABSOLUTE AUTO 18.27 K/uL (1.80-7.70); NEUTROPHILS PERCENT AUTO 91.5 % (41.0-71.0); PLATELET COUNT,PLT 287 K/uL (150-400); RED BLOOD CELL COUNT 3.69 M/uL (4.10-5.30); WHITE BLOOD CELL COUNT,WBC 19.96 K/uL (3.9-11.3)
[2023-10-05 06:10] LABS: A/G RATIO 0.6 (0.9-1.6); ALBUMIN 2.9 g/dL (3.4-5.0); BILIRUBIN TOTAL 0.2 mg/dL (0.2-1.0); CALCIUM 8.7 mg/dL (8.5-10.1); CARBON DIOXIDE,CO2 25.5 mmol/L (21.0-32.0); CREATININE 0.7 mg/dL (0.6-1.0); EST CRCL DRUG DOSING (CG) 87.87 mL/min; PROTEIN TOTAL,TP 7.6 g/dL (6.4-8.2)
[2023-10-05] MEDS ORDERED: Glucagon,Human Recombinant 1 MG Vial IM PRN (07:39)
[2023-10-05] MEDS ORDERED: 50% Dextrose in Water 50 ML Syringe IVPUSH PRN (07:39)
[2023-10-05] MEDS: Morphine 2 MG/ML SYRINGE IVPUSH PRN (08:54)
[2023-10-05] MEDS ORDERED: Insulin Aspart 100 Units/ML 3 ML Pen SUBCUT SCH (11:30)
== END 2023-10-05 13:00 | disposition home or self-care (01) ==
LOC: MW.ED 03:42 → MW.MS 05:46
PROVIDERS: ADMIT Internal Medicine; ATTEND Internal Medicine
DX: J36 Peritonsillar abscess (principal); F17.210 Nicotine dependence, cigarettes, uncomplicated
CPT/HCPCS: 0240U; 36415; 70491; 80053; 84703; 85025; 87651; 96365; 96375; 99285; A9270; C9113; J0295; J1100; J1650; J2270; J2543; J3490; J7030; Q9967; 96366; 96367; 96372; 96376; 99284; G0378

== ENCOUNTER 2024-02-21 09:48 | Emergency (ER) | payer SELFPAY ==
[2024-02-21] MEDS: Sulfamethoxazole/Trimethoprim 800-160 MG Tab PO ONE (10:40)
[2024-02-21] MEDS: Acetaminophen/HYDROcodone 325-5 MG Tab PO ONE (10:40)
[2024-02-21 10:41] LABS: BASOPHILS ABSOLUTE AUTO 0.04 K/uL (0.00-0.20); BASOPHILS PERCENT AUTO 0.5 % (0.0-1.0); EOSINOPHILS ABSOLUTE AUTO 0.51 K/uL (0.00-0.45); EOSINOPHILS PERCENT AUTO 5.8 % (0.0-6.0); HEMATOCRIT 36.8 % (37.0-47.0); HEMOGLOBIN 11.7 g/dL (12.0-16.0); IMMATURE GRAN ABSOLUTE AUTO 0.01 K/uL (0.00-0.05); IMMATURE GRAN PERCENT AUTO 0.1 % (0.0-0.4); LYMPHOCYTES PERCENT AUTO 17.2 % (24.0-44.0); MEAN CORPUSCULAR HEMOGLOBIN 27.5 pg (28.0-32.0); MEAN CORPUSCULAR HGB CONC 31.8 g/dL (32.0-36.0); MEAN CORPUSCULAR VOLUME 86.6 fL (83.0-99.0); MEAN PLATELET VOLUME 10.1 fL (9.4-12.3); MONOCYTES ABSOLUTE AUTO 0.49 K/uL (0.00-0.80); MONOCYTES PERCENT AUTO 5.6 % (0.0-8.0); NEUTROPHILS ABSOLUTE AUTO 6.17 K/uL (1.80-7.70); NEUTROPHILS PERCENT AUTO 70.8 % (41.0-71.0); PLATELET COUNT,PLT 288 K/uL (150-400); RED BLOOD CELL COUNT 4.25 M/uL (4.10-5.30); WHITE BLOOD CELL COUNT,WBC 8.72 K/uL (3.9-11.3)
[2024-02-21 11:02] LABS: A/G RATIO 0.8 (0.9-1.6); ALBUMIN 3.4 g/dL (3.4-5.0); BILIRUBIN TOTAL 0.3 mg/dL (0.2-1.0); CALCIUM 8.5 mg/dL (8.5-10.1); CARBON DIOXIDE,CO2 28.3 mmol/L (21.0-32.0); CREATININE 0.9 mg/dL (0.6-1.0); EST CRCL DRUG DOSING (CG) 68.35 mL/min; PROTEIN TOTAL,TP 7.5 g/dL (6.4-8.2)
== END 2024-02-21 11:28 | disposition home or self-care (01) ==
LOC: MW.ED 09:48
DX: L02.31 Cutaneous abscess of buttock (principal); L03.317 Cellulitis of buttock; Z75.8 Other problems related to medical facilities and other health care; Z79.899 Other long term (current) drug therapy
CPT/HCPCS: 36415; 80053; 84703; 85025; 99283; A9270

== ENCOUNTER 2024-12-30 22:01 | Emergency (ER) | payer MEDICAID, OTHER ==
[2024-12-30] MEDS: Ketorolac 30 MG/ML SDV IVPUSH ONE (22:20)
== END 2024-12-30 23:21 | disposition home or self-care (01) ==
LOC: MW.ED 22:01
DX: S50.01XA Contusion of right elbow, initial encounter (principal); G56.31 Lesion of radial nerve, right upper limb; Z79.899 Other long term (current) drug therapy; V86.09XA Driver of other special all-terrain or other off-road motor vehicle injured in traffic accident, initial encounter; Y93.89 Activity, other specified
CPT/HCPCS: 29105; 73070; 73110; 96374; 99285; J1885; 99282